=== PATIENT | female | born 1950 | race Caucasian/White ===

== ENCOUNTER 2018-07-05 11:14 | Outpatient (CLI) | payer MEDICARE ==
[2018-07-05 11:34] LABS: CALCIUM 9.3 mg/dL (8.5-10.3); CREATININE 0.9 mg/dL (0.4-1.0)
== END 2018-07-05 11:15 | disposition home or self-care (01) ==
LOC: LAB 11:14
PROVIDERS: ATTEND Internal Medicine
DX: M86.9 Osteomyelitis, unspecified (principal)
CPT/HCPCS: 36415; 80048

== ENCOUNTER 2024-01-03 09:37 | Outpatient (CLI) | payer MEDICARE ==
--- NOTE | 2024-01-03 12:52 | CT Report ---
PROCEDURE: Chest WO INDICATIONS: SYSTEMIC SCLEROSIS TECHNIQUE: A CT scan of the chest was performed. Intravenous contrast media was not administered. Images were re corded and evaluated at appropriate window settings. Reformats: axial MIP of the chest, coronal and s agittal. For radiation dose reduction, the following was used: automated exposure control, adjustment of mA and/or kV according to patient size. COMPARISON: None. FINDINGS: Image quality: Diagnostic Lungs and pleura:No airspace disease or pleural effusions. Biapical scarring is present. Scattered ot her areas of scarring and atelectasis. Suspected small bilateral fat-containing Bochdalek's hernias. Many micronodules are seen, best assessed on series 10, for example in the right middle lobe image 98 . Mediastinum, heart, and esophagus: Nonspecific mild distal esophageal wall thickening and prominent p eriesophageal lymph nodes. There are also prominent borderline-enlarged hilar mediastinal lymph nodes , for example subcarinal node measures 0.9 cm in short axis. There are atherosclerotic calcifications. Trace pericardial thickening versus effusion. Coronary calc ifications. Chest wall and thyroid: Unremarkable chest wall. Thyroid not well seen Upper abdomen: No gross abnormality on these noncontrast images.. Checking renal calculus. Bones: Degenerative changes. IMPRESSION: Biapical pulmonary scarring, nonspecific. There are no specific indicators for significant interstiti al fibrotic lung disease. No dense airspace disease or pleural effusions. Many micronodules are present. Optional follow-up may be obtained in one year if the patient is tende r high risk. If further evaluation of lung parenchyma is desired, consider high-resolution protocol c hest CT. Many prominent mediastinal and hilar lymph nodes are present, indeterminate, possibly reactive Mild nonspecific wall thickening at the gastroesophageal junction. This could be further evaluated wi th endoscopy if necessary Coronary calcifications. Other findings above. Reviewed by: Chong Jacobson MD on 01/03/2024 12:50 PM PDT Approved by: Chong Jacobson MD on 01/03/2024 12:50 PM PDT Station ID: [id number]
== END 2024-01-03 09:38 | disposition home or self-care (01) ==
LOC: DI 09:37
PROVIDERS: ATTEND Internal Medicine Rheumatology
DX: M34.9 Systemic sclerosis, unspecified (principal); J98.4 Other disorders of lung; R91.8 Other nonspecific abnormal finding of lung field; I25.10 Atherosclerotic heart disease of native coronary artery without angina pectoris

== ENCOUNTER 2024-02-29 07:00 | Outpatient (CLI) | payer MEDICARE ==
--- NOTE | 2024-02-29 22:12 | XRAY Report ---
PROCEDURE: Toe(s) 2+V RT INDICATIONS: RIGHT PINKY TOE PAIN TECHNIQUE: 3 views of the fifth toe(s) acquired. COMPARISON: None. FINDINGS: Bones: No fractures or dislocations. Osteoarthritic changes are noted throughout the colon. No susp icious bony lesions. Soft tissues: Tiny density involving soft tissue within the above fifth toe. No other abnormal soft t issue density is seen. IMPRESSION: No acute cervical fracture or dislocation. Possible tiny foreign body within soft tissue of distal to the fifth distal phalangeal tuft. No other radiopaque foreign body is seen. Reviewed by: Lazaro Jones MD on 02/29/2024 10:10 PM PDT Approved by: aLzaro Jones MD on 02/29/2024 10:10 PM PDT Station ID: [id number]
== END 2024-02-29 23:59 | disposition home or self-care (01) ==
LOC: DI.S 07:00
PROVIDERS: ATTEND Emergency Medicine
DX: M79.674 Pain in right toe(s) (principal)